=== PATIENT | male | born 1960 | race Caucasian/White ===

== ENCOUNTER → 2019-04-18 | Outpatient (CLI) | payer OTHER ==
[~2019-04-18] VITALS: Ht 177.8 cm; Wt 70.3 kg
[~2019-04-18] MED LIST: AMBIEN 5 MG TABL5 M1 PO; ASPIRIN EC81 M1 PO; CELEXA40 MG PO; DIAZEPAM 5 MG5 M1 PO; ENDOCET 5-3251 EACH; GLUCOSAMINE CH1 EAC7; GLUCOSAMINE CH1 EAC7 PO; INDERAL 20 MG T20 M1 PO; MIRAPEX0.5 MG PO; NAPROSYN500 MG PO; PAROXETINE HCL20 MG PO; RESTORIL15 MG PO; ROPINIROLE HCL4 MG PO; SINEMET 25-2501 EAC1 PO; TRIAMTERENE-HC1 EAC1 PO
--- NOTE | ~2019-04-18 | HPC ---
[facility] [place] [address] PAIN MANAGEMENT CONSULTATION Name: IGNACIO SALAZAR Room #: REG [facility].#: [id number] Admission: 04/18/19 ������������������ Attend Phys: Luis Ferreira MD Discharge: ������������������ Date of : 60 Report #: [id number] THIS REPORT FOR: //name// CC: TERELL Ferreira Kahlil Luis DATE OF SERVICE: 04/18/2019 CHIEF COMPLAINT: Low back pain radiating down the anterior thigh on the left. HISTORY OF PRESENT ILLNESS: Initial consultation for the patient who is a very pleasant 59-year-old gentleman, prison through his visit he noted that he has been diagnosed with Parkinson's disease. He is here today; however, with lumbar radiculopathy. His pain is quite concordinate with his MRI in the L3-L4 distribution. He describes for us recent onset pain 11/2018 that begins in his left lumbar region, radiates through the buttock into the anterior thigh, but does not extend below the knee. It is associated with some sensations of numbness and tingling. It has been slightly better over the last 3-4 days, but his average daily pain is between 4 and 8. He describes it as crushing and stabbing. It is made worse by exercise, lifting, prolonged sitting, and stress. It is improved by exercise and standing. MEDICATIONS: Carbidopa/levodopa, ropinirole, pramipexole, propranolol, paroxetine, temazepam, naproxen, and aspirin. ALLERGIES: None. PAST MEDICAL HISTORY: Positive for Parkinson's disease diagnosed in 2012. He sees Dr. Carpio once or twice a year. He has a history of cervical radiculopathy and has undergone an anterior cervical diskectomy and fusion in 09/[address] David Zaragoza. Had an appendectomy in 1970 and a hernia repair as an infant. SOCIAL HISTORY: He is . His is with him and supportive today. 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 Denies use of tobacco and alcohol. REVIEW OF SYSTEMS: Positive for some visual changes, some constipation, nocturia, mild incontinence. Complains of slight tremor with his Parkinson disease and depression. PHYSICAL EXAMINATION: He is very pleasant, outgoing. No signs of memory loss or confusion. VITAL SIGNS: Blood pressure 101/63, heart rate 63, respirations 14, and O2 sat [facility] [address] [place] [address] PAIN MANAGEMENT CONSULTATION Name: IGNACIO SALAZAR Room #: REG [facility].#: [id number] Admission: 04/18/19 ������������������ Attend Phys: Luis Ferreira MD Discharge: ������������������ Date of : 60 Report #: [id number] 100%. He is 5 feet 10 inches, 155 pounds with a BMI of 22.2. His pain intensity is 2/10. He moves from an independent sitting to standing position without any difficulty. He can do it without using his arms. His gait is nonantalgic. He does not have any parkinsonian gait features that I can see. HEENT: Normal. He has full facial expression. NECK: Supple. CHEST: Clear. CARDIAC: Rhythm is regular. ABDOMEN: Soft. Examination of the spine reveals some stiffness, particularly in flexion and extension. Extension reproduces pain and radiating in the left hip. Straight leg raising is positive for radicular symptoms in the L3-L4 distribution. Sensation is slightly diminished to pinprick in that location as well. There is no focal weakness. Deep tendon reflexes are 2+ at the left knee, but 3+ everywhere else. His reflexes may be accentuated because of his Parkinson's disease although there is diminished reflex at the left knee suggesting L4 compression. MRI is reviewed including films and report. I shared this with the patient. There is clear evidence of an L3-L4, moderate spinal stenosis and narrowing of the left lateral recess with left severe neural foraminal stenosis due to a disk protrusion extending in the left lateral recess. At L4-L5, there is also a moderate spinal stenosis due to disk protrusion. Other degenerative disk are noted at L2-L3 and L1-L2, but these are milder in nature. IMPRESSION: L3-L4 radiculopathy. This can coordinate with MRI. RECOMMENDATIONS: Epidural steroid injection under fluoroscopic guidance. This should be helpful. We discussed the importance of physical therapy, which we will pursue. He has a followup appointment on 04/25/2019 for his injection. I explained the procedure to him in some detail. ��������������������������������������������� ���������������������������������������� By: ��������������������������������������������� [id number] Luis Ferreira MD /nt
[2019-04-18 10:22] VITALS: BP 101/63
--- NOTE | 2019-04-18 10:45 | NUR ---
Pain Clinic Assessment: 1. History of Osteoarthritis: UNKNOWN History of Rheumatoid Arthritis: UNKNOWN 2. Height: 5 ft. 10 in. 177.8 cm. Weight: 155.0 lb. oz. 70.308 kg. Patient's BMI: 22.2 3. Vital Signs: BP: 101/63 Pulse: 63 Resp: 14 Temp: 02 Sat: 100 ECG Mon: 4. Pain Intensity: 2 5. Fall Risk: Dizziness: N Needs help standing or walking: N Fallen in the last 3 months: N Fall risk comments: 6. Patient on Blood Thinner: None 7. History of Hypertension: Y 8. Opioid Therapy greater than 6 weeks: N Opiate Contract Signed: 9. Risk Assessment Tool Provided: 10. Functional Assessment Tool: 11. Recreational Drug Use: Unknown Drug Type: Tobacco Use: Never Smoker Tobacco Type: Amount or Packs/day: How Many Years: Alcohol Use: No Frequency: Quant:
== END ==
LOC: PAIN 06:54
DX: M54.16 Radiculopathy, lumbar region (principal); Z79.899 Other long term (current) drug therapy; Z79.82 Long term (current) use of aspirin

== ENCOUNTER → 2019-04-25 | Outpatient (CLI) | payer OTHER ==
[~2019-04-25] VITALS: Ht 172.7 cm; Wt 67.1 kg
--- NOTE | ~2019-04-25 | HPC ---
[facility] [place] [address] PAIN MANAGEMENT CONSULTATION Name: IGNACIO SALAZAR [id number] Admission: 04/25/19 ������������������ Attend Phys: Luis Ferreira MD Discharge: ������������������ Date of : 60 Report #: [id number] THIS REPORT FOR: //name// CC: Tyler Smith MD DATE OF SERVICE: 04/25/2019 Follow up visit for L3-L4 radiculopathy, left and epidural steroid injection under fluoroscopic guidance. The patient returns today for the epidural injection that we have now preauthorized through his insurance company. There has been no change in his condition since he was seen on 04/18/2019. I reviewed the procedure, benefits and risks and he is anxious to proceed. IMPRESSION: L3-L4 left lumbar radiculopathy. PROCEDURE: Left paramedian translaminar epidural steroid injection under fluoroscopic guidance. DESCRIPTION OF PROCEDURE: He was taken to the fluoroscopic suite, placed prone, skin prepped with ChloraPrep. Skin anesthetized at the L3-L4 level with 1% lidocaine and a 20-gauge Tuohy epidural needle advanced on the first attempt into the epidural space just to the left of midline. There was no blood or CSF aspirated. One 0.25 mL of Omnipaque was injected and excellent epidurogram achieved along the left lateral recess. It was followed by 3 mL of 0.5% lidocaine mixed with 80 mg of triamcinolone. He tolerated the procedure well. There were no complications. He was taken to recovery room for observation. Follow up as needed. Appointment was made for 6 weeks or so. A second injection can be performed if necessary, but we would like to perform the fewest number of injections, possible. If he is doing well, he will cancel and we will see him on a p.r.n. basis. He will continue with physical activity as discussed. Exercise and rehabilitation is critical at this stage. ��������������������������������������������� ���������������������������������������� By: ��������������������������������������������� [id number] Luis Ferreira MD /nt
[2019-04-25 08:41] VITALS: BP 114/66
--- NOTE | 2019-04-25 08:45 | NUR ---
Pain Clinic Assessment: 1. History of Osteoarthritis: DENIES History of Rheumatoid Arthritis: DENIES 2. Height: 5 ft. 8 in. 172.7 cm. Weight: 148.0 lb. oz. 67.132 kg. Patient's BMI: 22.5 3. Vital Signs: BP: 114/66 Pulse: 65 Resp: 14 Temp: 02 Sat: 98 ECG Mon: 4. Pain Intensity: 4 5. Fall Risk: Dizziness: N Needs help standing or walking: N Fallen in the last 3 months: N Fall risk comments: 6. Patient on Blood Thinner: None 7. History of Hypertension: Y 8. Opioid Therapy greater than 6 weeks: N Opiate Contract Signed: 9. Risk Assessment Tool Provided: 10. Functional Assessment Tool: 11. Recreational Drug Use: Never Drug Type: Tobacco Use: Never Smoker Tobacco Type: Amount or Packs/day: How Many Years: Alcohol Use: No Frequency: Quant:
== END | disposition home or self-care (01) ==
LOC: PAIN 06:38
DX: M54.16 Radiculopathy, lumbar region (principal); Z79.82 Long term (current) use of aspirin; Z79.899 Other long term (current) drug therapy

== ENCOUNTER → 2019-05-30 | Outpatient (CLI) | payer OTHER ==
[~2019-05-30] VITALS: Ht 172.7 cm; Wt 68.0 kg
--- NOTE | ~2019-05-30 | HPC ---
[facility] [place] [address] PAIN MANAGEMENT CONSULTATION Name: IGNACIO SALAZAR Room #: REG [facility].#: [id number] Admission: 05/30/19 Attend Phys: Luis Ferreira MD Discharge: Date of : 60 Report #: [id number] THIS REPORT FOR: //name// CC: Tyler Ferreira DATE OF SERVICE: 05/30/2019 Followup visit for lumbar radiculopathy. The patient returns to pain clinic for an epidural injection today prior to his car trip to [place]. He has Parkinson's disease. He has lumbar radiculopathy at L3-L4 and responded beautifully to an epidural on 04/25/2019. He returns today reporting that he still has some improvement, but the pain has gradually returned. He would like the injection prior to his trip and I think that this is bledsoe. His pain intensity is 3/10. PHYSICAL EXAMINATION: VITAL SIGNS: He is 5 feet 8, 150 pounds for a BMI of 22.8. Blood pressure is 124/74, heart rate 73, respirations 14. CHEST: Clear. CARDIAC: Rhythm is regular. He moves independently from sitting to standing position, walks with a stiff gait consistent with his Parkinson disease. Straight leg raising is positive in the L3-L4 distribution on the left. There is also pain radiating through the left hip. Deep tendon reflexes are 2+, left knee 3+ elsewhere. MRI shows clear evidence of an L3-L4, moderate stenosis, and narrowing of the left lateral recess. At L4-L5, there is moderate spinal stenosis due to disk protrusion and degenerative disk disease elsewhere. IMPRESSION: L3-L4 radiculopathy on the left. PROCEDURE: Repeat epidural injection under fluoroscopic guidance. DESCRIPTION OF PROCEDURE: He was taken to fluoroscopic suite, placed prone, skin prepped with ChloraPrep. Skin anesthetized over the L3-L4 interspace. A 20-gauge Tuohy epidural needle advanced first attempt in the epidural space with loss of resistance technique. There was no blood or CSF aspirated. A 1 mL of Omnipaque injected. Good spread of dye observed into the epidural space followed by 3 mL of 0.5% lidocaine mixed with 80 mg of triamcinolone. He [address] [address] PAIN MANAGEMENT CONSULTATION Name: IGNACIO SALAZAR Yesy Room #: REG Mariah Rabago#: [id number] Admission: 05/30/19 Attend Phys: Luis Ferreira MD Discharge: Date of : 60 Report #: [id number] tolerated the procedure well and was observed for 45 minutes and discharged to the recovery room with a pain score of 0/10. Follow up as needed. By: [id number] Luis Ferreira MD /nt
[2019-05-30 10:13] VITALS: BP 124/72
--- NOTE | 2019-05-30 10:34 | NUR ---
Pain Clinic Assessment: 1. History of Osteoarthritis: Not Applicable History of Rheumatoid Arthritis: Not Applicable 2. Height: 5 ft. 8 in. 172.7 cm. Weight: 150.0 lb. oz. 68.040 kg. Patient's BMI: 22.8 3. Vital Signs: BP: 124/72 Pulse: 73 Resp: 14 Temp: 02 Sat: 97 ECG Mon: 4. Pain Intensity: 3 5. Fall Risk: Dizziness: N Needs help standing or walking: N Fallen in the last 3 months: N Fall risk comments: 6. Patient on Blood Thinner: None 7. History of Hypertension: Y 8. Opioid Therapy greater than 6 weeks: N Opiate Contract Signed: 9. Risk Assessment Tool Provided: 10. Functional Assessment Tool: 11. Recreational Drug Use: Never Drug Type: Tobacco Use: Never Smoker Tobacco Type: Amount or Packs/day: How Many Years: Alcohol Use: No Frequency: Quant:
== END | disposition home or self-care (01) ==
LOC: PAIN 06:51
DX: M51.16 Intervertebral disc disorders with radiculopathy, lumbar region (principal); M51.36 Other intervertebral disc degeneration, lumbar region; M48.061 Spinal stenosis, lumbar region without neurogenic claudication; G89.29 Other chronic pain; Z98.890 Other specified postprocedural states; Z79.82 Long term (current) use of aspirin; Z79.899 Other long term (current) drug therapy

== ENCOUNTER → 2020-04-06 | Outpatient (CLI) | payer OTHER ==
[~2020-04-06] VITALS: Ht 172.7 cm; Wt 62.1 kg
[~2020-04-06] MED LIST changes: +BENEFIBER1 EAC1 PO; +FLOMAX0.4 MG PO; +MIRALAX119 GM PO; +NEURONTIN100 MG PO
--- NOTE | ~2020-04-06 | HPC ---
[facility] [place] [address] PAIN MANAGEMENT CONSULTATION Name: IGNACIO SALAZAR Room #: REG [facility].#: [id number] Admission: 04/06/20 Attend Phys: Luis Ferreira MD Discharge: Date of : 60 Report #: [id number] THIS REPORT FOR: cc: Tyler Luevano MD, Kenneth L MD Morgan, Richard L. MD ~ CC: Tyler Ferreira DATE OF SERVICE: 04/06/2020 Followup visit for lumbar radiculopathy. The patient returns to pain clinic today with his . He had an epidural injection performed on 05/30/2019 and reports that he had outstanding pain relief for many, many months. Pain is now gradually returned and he is coming today hoping that we can reschedule him for an epidural injection. The pain today is similar to before. It is in his left low back and radiates to the left buttock down his left leg and stops at the knee. It is made worse by lifting, standing, walking and interesting by mental stress. He gets some relief with hot showers, drawing his leg up into a flexed position and repositioning. His Parkinson's disease has not progressed dramatically since I last saw him. He is on a number of medicines, which were reviewed in detail today. For pain, he has been using only gabapentin 100 mg. He has problems with constipation and is using polyethylene glycol, MiraLax as needed. ALLERGIES: None. PAST MEDICAL HISTORY: Remarkable for cervical fusion. Parkinson's disease was diagnosed 7 years ago. He has some mild incontinence. He has some gait abnormalities, but no shuffling gait. It is more of a spastic type gait. He has been doing home exercises, geared towards treatment of his Parkinson's disease. PHYSICAL EXAMINATION: GENERAL: He is 5 feet 8 inches, BMI is 20.8. VITAL SIGNS: Blood pressure 99/64, heart rate 65, respirations 14, O2 sat 100, breathing easily. CHEST: Clear. CARDIAC: Rhythm is regular. MUSCULOSKELETAL: Moves independently from sitting to standing position. His gait is awkward, but not necessarily antalgic. It is broad-based, but stable. He has tenderness across his low back. Pain with forward flexion and straight leg raising consistent with a left lumbar radiculopathy in the L3-L4 distribution. [address] [address] PAIN MANAGEMENT CONSULTATION Name: IGNACIO SALAZAR Room #: REG CLMariah Gem#: [id number] Admission: 04/06/20 Attend Phys: Luis Ferreira MD Discharge: Date of : 60 Report #: [id number] IMPRESSION: Chronic low back pain with recurring lumbar radiculopathy. He has had 2 injections in the last 18 months. I think it is reasonable to repeat the injection for him and we will schedule him in the upcoming month. We will need preauthorization. A second injection may be required, but we will see how he responds. First things first, we will get him in next week. Questions were answered. PLAN: An L3-L4 injection as before. By: [id number] Luis Ferreira MD /nt
[2020-04-06 09:48] VITALS: BP 99/64
--- NOTE | 2020-04-06 10:09 | NUR ---
Pain Clinic Assessment: 1. History of Osteoarthritis: BACK History of Rheumatoid Arthritis: Not Applicable 2. Height: 5 ft. 8 in. 172.7 cm. Weight: 137.0 lb. oz. 62.143 kg. Patient's BMI: 20.8 3. Vital Signs: BP: 99/64 Pulse: 65 Resp: 14 Temp: 02 Sat: 100 ECG Mon: 4. Pain Intensity: 7 5. Fall Risk: Dizziness: N Needs help standing or walking: N Fallen in the last 3 months: Y Fall risk comments: 6. Patient on Blood Thinner: None 7. History of Hypertension: Y 8. Opioid Therapy greater than 6 weeks: N Opiate Contract Signed: 9. Risk Assessment Tool Provided: LOW RISK 09/27 10. Functional Assessment Tool: 11. Recreational Drug Use: Never Drug Type: Tobacco Use: Never Smoker Tobacco Type: Amount or Packs/day: How Many Years: Alcohol Use: No Frequency: Quant:
== END ==
LOC: PAIN 06:59
PROVIDERS: ATTEND Anesthesiology Pain Medicine
DX: M54.16 Radiculopathy, lumbar region (principal); M54.5 Low back pain; G89.29 Other chronic pain

== ENCOUNTER → 2020-04-09 | Outpatient (CLI) | payer OTHER ==
[~2020-04-09] VITALS: Ht 172.7 cm; Wt 63.3 kg
--- NOTE | ~2020-04-09 | HPC ---
[address] [place] [address] PAIN MANAGEMENT CONSULTATION Name: IGNACIO SALAZAR Room #: REG [facility] Nicola.#: [id number] Admission: 04/09/20 Attend Phys: Luis Ferreira MD Discharge: Date of : 60 Report #: [id number] THIS REPORT FOR: cc: Tyler Luevano MD, Kenneth L MD Morgan, Richard L. MD ~ CC: Dr. Chloé Ferreira DATE OF SERVICE: 04/09/2020 Followup visit for L3-L4 epidural injection under fluoroscopic guidance. The patient returns to pain clinic today for his repeat injection. He was seen in consultation on 04/06. We were unable to provide the injection for him on that day until a preauthorization was obtained, which we have done. I reviewed the procedure with him and I reviewed my consultation from just 3 days ago. There have been no significant changes. IMPRESSION: Chronic low back pain with recurring lumbar radiculopathy. PROCEDURE: Lumbar epidural steroid injection under fluoroscopic guidance. DESCRIPTION OF PROCEDURE: After informed consent, he was taken to the fluoroscopic suite, placed prone, skin prepped with ChloraPrep. Skin anesthetized over the L3-L4 interspace. A 20-gauge Tuohy epidural needle advanced first attempt in the epidural space with loss of resistance technique. There was no blood nor CSF aspirated. A 1 mL of Omnipaque was injected. Good spread of dye observed into the epidural space, followed by 3 mL of 0.5% lidocaine mixed with 80 mg of triamcinolone. He tolerated the procedure well without complications. He was taken to recovery room for observation and discharged in good condition. A followup visit is scheduled in the future as needed. No return appointment was made at this time. By: [id number] Luis Ferreira MD /nt
[2020-04-09 09:58] VITALS: BP 107/63
--- NOTE | 2020-04-09 10:06 | NUR ---
Pain Clinic Assessment: 1. History of Osteoarthritis: BACK History of Rheumatoid Arthritis: Not Applicable 2. Height: 5 ft. 8 in. 172.7 cm. Weight: 139.6 lb. oz. 63.322 kg. Patient's BMI: 21.2 3. Vital Signs: BP: 107/63 Pulse: 63 Resp: 16 Temp: 02 Sat: 99 ECG Mon: 4. Pain Intensity: 5-6 5. Fall Risk: Dizziness: N Needs help standing or walking: N Fallen in the last 3 months: N Fall risk comments: 6. Patient on Blood Thinner: None 7. History of Hypertension: Y 8. Opioid Therapy greater than 6 weeks: N Opiate Contract Signed: 9. Risk Assessment Tool Provided: LOW RISK 09/27 10. Functional Assessment Tool: 11. Recreational Drug Use: Never Drug Type: Tobacco Use: Never Smoker Tobacco Type: Amount or Packs/day: How Many Years: Alcohol Use: No Frequency: Quant:
== END | disposition home or self-care (01) ==
LOC: PAIN 08:05
PROVIDERS: ATTEND Anesthesiology Pain Medicine
DX: M54.16 Radiculopathy, lumbar region (principal); G89.29 Other chronic pain; Z98.890 Other specified postprocedural states; Z79.899 Other long term (current) drug therapy